=== PATIENT | female | born 1970 | race Caucasian/White ===

== ENCOUNTER → 2016-11-30 | Outpatient (CLI) | payer OTHER ==
[~2016-11-30] MED LIST: ALBU1AER9 INH; GADAVIST IV PRN; HYDR-4383 PO; KETO10TA PO; LORA-741 PO; PARO1TAB27 PO; RIZA10TA19 PO
--- NOTE | 2016-11-30 10:49 | DIAGNOSTIC IMAGING REPORT ---
MRI OF THE BRAIN WITHOUT AND WITH IV CONTRAST CLINICAL HISTORY: Headaches, vision DISTURBANCES COMPARISON STUDY: No previous studies for comparison. TECHNIQUE: Utilizing a 1.5 Ama magnet and dedicated coil, multiplanar, multiecho imaging of the brain was performed pre and postcontrast administration. IV administration of 8 mL of Gadavist contrast was uneventful. FINDINGS: Diffusion-weighted images are negative for an acute ischemic event. Signal characteristics of the cerebellar as well as cerebral hemispheres are unremarkable. There is no evidence for abnormal postcontrast enhancement. Internal auditory canals are unremarkable. Sella and parasellar region is unremarkable as well. IMPRESSION: Normal study. Electronically signed by: Jose Thompson M.D. 11/30/2016 10:48 AM Dictated Date/Time: 11/30/2016 10:45 AM
== END | disposition home or self-care (01) ==
LOC: C.MRIBC 09:45
PROVIDERS: ATTEND Psychiatry & Neurology Neurology
DX: R51 Headache (principal); Z85.048 Personal history of other malignant neoplasm of rectum, rectosigmoid junction, and anus; H53.9 Unspecified visual disturbance